=== PATIENT | male | born 1990 | race Caucasian/White ===

== ENCOUNTER 2017-01-21 22:44 | Emergency (ER) | payer SELFPAY ==
[~2017-01-21] VITALS: Ht 190.5 cm; Wt 86.2 kg
[2017-01-21] MEDS ORDERED: ACETAMINOPHEN 325 MG TAB PO ONE (23:00)
[2017-01-21 23:05] VITALS: BP 109/60
[2017-01-22] MEDS ORDERED: LORazepam 0.5 MG TAB PO ONE (00:45)
== END 2017-01-22 01:57 | disposition home or self-care (01) ==
LOC: ER 22:47
DX: S61.214A Laceration without foreign body of right ring finger without damage to nail, initial encounter (principal); S61.216A Laceration without foreign body of right little finger without damage to nail, initial encounter; F41.9 Anxiety disorder, unspecified; Z76.0 Encounter for issue of repeat prescription; W25.XXXA Contact with sharp glass, initial encounter; Y93.89 Activity, other specified; Y99.8 Other external cause status; Y92.89 Other specified places as the place of occurrence of the external cause
CPT/HCPCS: 12004; 73120